=== PATIENT | female | born 1950 | race Caucasian/White ===

== ENCOUNTER 2016-10-08 23:24 | Emergency (ER) | payer OTHER ==
[2016-10-08] MEDS ORDERED: Ketorolac INJ* 30 MG/ML 1 ML VIAL IV ONE (23:53)
[2016-10-08] MEDS ORDERED: NS 0.9% 1000 ML* 1,000 ML IV ONE (23:53)
--- NOTE | 2016-10-09 00:32 | ED ---
Prateek Mc Rebecca, scribed for Todd Mason MD on 10/08/16 at 2354 . Abdominal Pain/Female - HPI Summary HPI Summary: Pt is a 66 y/o F who presents to ED c/o umbilical abdominal pain. Sx began at 0400 this morning and has been constant since onset. Pain is currently severe, ranked 8/10 and does not radiate. Treated with a half a Hydrocodone at 1730 and at 1945 she took a half a Xanax and the sx have not changed. Sx aggravated and alleviated by nothing. Additionally c/o nausea and low grade fever of 99.6. Denies V/D. PMHx cholelithiasis, diagnosed 1 year ago by MRI which she has not had complications with. - History of Current Complaint Chief Complaint: EDAbdPain Stated Complaint: ABD PAIN Time Seen by Provider: 10/08/16 23:48 Hx Obtained From: Patient Onset/Duration: Lasting Hours, Still Present Timing: Constant Severity Currently: Severe Pain Intensity: 8 Pain Scale Used: 0-10 Numeric Location: Umbilical Aggravating Factor(s): Nothing Alleviating Factor(s): Nothing Associated Signs and Symptoms: Positive: Fever - low grade, Nausea. Negative: Vomiting, Diarrhea Allergies/Adverse Reactions: Allergies Allergy/AdvReac Type Severity Reaction Status Date / Time Codeine Allergy Headache Verified 12/21/14 08:50 Iohexol Allergy Unknown Verified 10/09/16 03:21 Reaction Details Penicillins Allergy Rash Verified 12/21/14 08:50 PMH/Surg Hx/FS Hx/Imm Hx Endocrine/Hematology History: Denies: Hx Diabetes, Hx Thyroid Disease Cardiovascular History: Reports: Hx Hypertension Respiratory History: Reports: Hx Asthma Denies: Hx Chronic Obstructive Pulmonary Disease (COPD) GI History: Reports: Other GI Disorders - Hx cholelithiasis Denies: Hx Ulcer Musculoskeletal History: Reports: Hx Rheumatoid Arthritis - Surgical History Surgery Procedure, Year, and Place: Keloid surgery on ear x's 2 Infectious Disease History: No Infectious Disease History: Denies: Hx Clostridium Difficile, Hx Hepatitis, Hx Human Immunodeficiency Virus (HIV), Hx of Known/Suspected MRSA, Hx Shingles, Hx Tuberculosis, Hx Known/ Suspected VRE, Hx Known/Suspected VRSA, History Other Infectious Disease, Traveled Outside the [place] in Last 30 Days - Family History Known Family History: Positive: Cardiac Disease, Hypertension - Social History Alcohol Use: Occasionally Substance Use Type: Reports: None Hx Tobacco Use: Yes - QUIT IN 1999 Smoking Status (MU): Former Smoker Amount Used/How Often: 15 yrs Review of Systems Positive: Fever - Low-grade (99.6) Positive: Abdominal Pain, Nausea. Negative: Vomiting, Diarrhea All Other Systems Reviewed And Are Negative: Yes Physical Exam Triage Information Reviewed: Yes Vital Signs On Initial Exam: Initial Vitals Temp Pulse Resp BP Pulse Ox 96.9 F 90 22 149/84 97 10/08/16 23:30 10/08/16 23:30 10/08/16 23:30 10/08/16 23:30 10/08/16 23:30 Vital Signs Reviewed: Yes Appearance: Positive: Well-Appearing, Pain Distress - mild Skin: Positive: Warm Head/Face: Positive: Normal Head/Face Inspection Eyes: Positive: CORTEZ ENT: Positive: Hearing grossly normal Neck: Positive: Supple Respiratory/Lung Sounds: Positive: Clear to Auscultation, Breath Sounds Present Cardiovascular: Positive: RRR Abdomen Description: Positive: Soft, Other: - mild rt upper abd tenderness. Negative: Distended, Guarding Bowel Sounds: Positive: Present Musculoskeletal: Positive: Strength/ROM Intact Neurological: Positive: Alert, Oriented to Person Place, Time Psychiatric: Positive: Affect/Mood Appropriate Diagnostics - Vital Signs Vital Signs Temp Pulse Resp BP Pulse Ox 10/08/16 23:30 96.9 F 90 22 149/84 97 - Laboratory Result Diagrams: 10/09/16 00:39 10/09/16 00:39 Lab Statement: Any lab studies that have been ordered have been reviewed, and results considered in the medical decision making process. - CT CT Abd/Pel CT Interpretation: Positive (See Comments) - Probbale acute cholecystitis, can be confirmed with ultrasound as clinically indicated. ED physician reviewed this radiology report and agrees. CT Interpretation Completed By: Radiologist - Ultrasound No standard instances Ultrasound Interpretation Completed By: Radiologist - Abdomen US: Mild right renal atrophy. Non-mobile stone in the gallbladder neck, possibly impacted, without secondary findings for cholecystitis. ED physician reviewed radiology report and agrees. Re-Evaluation - Re-Evaluation First Eval Change: Improved - results d/w pt Abdominal Pain Fem Course/Dx - Course Course Of Treatment: Pt is a 66 y/o F who presents to ED c/o umbilical abdominal pain. Sx began at 0400 this morning and has been constant since onset. Pain is currently severe, ranked 8/10 and does not radiate. Treated with a half a Hydrocodone at 1730 and at 1945 she took a half a Xanax and the sx have not changed. Sx aggravated and alleviated by nothing. Additionally c/o nausea and low grade fever of 99.6. Denies V/D. In the ED course, pt was given Toradol and fluids. PMHx cholelithiasis, diagnosed 1 year ago by MRI which she has not had complications with. Abdomen US reveals mild right renal atrophy. Non-mobile stone in the gallbladder neck, possibly impacted, without secondary findings for cholecystitis. CT Abd/Pel reveals Probable acute cholecystitis, can be confirmed with ultrasound as clinically indicated. Pt will be D/C to home with Dx of biliary colic and a follow up with her PCP. She understands and agrees. Elevated BP noted and advised to f/u with PCP. - Diagnoses Provider Diagnoses: Biliary colic Discharge - Discharge Plan Condition: Stable Disposition: HOME Patient Education Materials: Biliary Colic (ED) Referrals: [facility] [place] [facility]FERRAL [Outside] - 3 Days The documentation as recorded by the Prateek acosta Rebecca accurately reflects the service I personally performed and the decisions made by , Todd Mason MD.
[2016-10-09 01:05] LABS: Hematocrit 36 % (35-47); Hemoglobin 12.3 g/dl (12.0-16.0); Mean Corpuscular HGB Conc 34 g/dl (31-36); Mean Corpuscular Hemoglobin 30 pg (27-31); Mean Corpuscular Volume 88 fL (80-97); Mean Platelet Volume 8 um3 (7.4-10.4); Red Blood Count 4.09 10^6/ul (4.0-5.4); Red Cell Distribution Width 13 % (10.5-15); White Blood Count 8.9 10^3/ul (3.5-10.8)
[2016-10-09 01:17] LABS: Albumin 4.3 g/dL (3.2-5.2); BUN/Creatinine Ratio 13.7 (8-20); C Reactive Protein 13.29 mg/L (< 5.00); Calcium 9.8 mg/dL (8.6-10.3); EGFR African American 46.4 (>60); EGFR Non-African American 36.1 (>60); Globulin 3.6 g/dL (2-4); Potassium 3.9 mmol/L (3.5-5.0); Total Bilirubin 0.6 mg/dL (0.2-1.0); Total Protein 7.9 g/dL (6.4-8.9)
[2016-10-09] MEDS ORDERED: Iodixanol* (CONTRAST) 320 MG/ML 100 ML SDV IV ONE (02:05)
[2016-10-09] MEDS ORDERED: oxyCODONE/Acetamin 5/325 MG* TAB PO ONE (04:10)
[2016-10-09 04:26] VITALS: BP 106/56
--- NOTE | 2016-10-09 08:52 | RAD ---
Indication: RIGHT upper quadrant pain. Comparison: October 09, 2016 CT. Technique: RIGHT upper quadrant ultrasound. Report: Appropriate direction flow documented in the portal and hepatic veins. 14.6 cm liver is normal in echogenicity. Negative for focal hepatic lesions. Negative for intrahepatic biliary dilatation. 4.3 mm common bile duct. Adequately distended gallbladder with normal 2.7 mm wall is remarkable for multiple stones with nonmobile 2 cm stone at the gallbladder neck. Negative for pericholecystic fluid. Negative for sonographic Bess's sign. The pancreas is significantly obscured due to bowel gas as well as limited acoustic window secondary to large body habitus. The visualized pancreatic body and tail are unremarkable. Negative for ascites. 8.6 x 4.6 x 4.9 cm RIGHT kidney is remarkable for mild cortical thinning. Negative for hydronephrosis. IMPRESSION: Cholelithiasis with nonmobile 2 cm stone at the gallbladder neck. Negative for gallbladder wall thickening, pericholecystic fluid, biliary dilatation, or sonographic Bess's sign to favor acute cholecystitis.
--- NOTE | 2016-10-09 10:14 | RAD ---
INDICATION: Abdominal pain mid abdomen and RIGHT upper quadrant since 0400 hours. Nonmobile 2 cm stone at gallbladder neck on ultrasound of the same date. COMPARISON: RIGHT upper quadrant ultrasound of the same date. TECHNIQUE: Multidetector CT images were obtained from the lung bases to the ischial tuberosities. Oral contrast administered. Assessment of the visceral limited without IV contrast. REPORT: Unremarkable visualized inferior thorax. Unremarkable liver. Multiple calcified stones in the normally distended gallbladder including a 2 cm stone at the neck corresponding with the ultrasound finding. Negative for biliary dilatation or visualized stone along the course of the nondilated common bile duct. Negative for pericholecystic fluid. Unremarkable pancreas and spleen. Negative for CT abnormality of the upper GI, small bowel, diminutive appendix visualized ascending lateral to the cecum, or colon. Negative for ascites, free air, hernias. Normal adrenal glands. Arterial calcification at the hilum of the RIGHT kidney. Negative for nephrolithiasis or hydronephrosis. No suspicious focal renal lesions. Unremarkable ureters and partially distended urinary bladder as well as the anteverted uterus and adnexal regions. Negative for lymphadenopathy. Minimal calcific plaque of normal diameter abdominal aorta. Physiologic partial distention of the IVC. Negative for suspicious osseous lesions. IMPRESSION: Cholelithiasis without compelling secondary CT findings to favor acute cholecystitis. Normal appendix documented. Negative for obstructive uropathy.
== END 2016-10-09 04:20 | disposition home or self-care (01) ==
LOC: ED 23:24
DX: K80.50 Calculus of bile duct without cholangitis or cholecystitis without obstruction (principal); R50.9 Fever, unspecified; R11.0 Nausea; Z87.891 Personal history of nicotine dependence
CPT/HCPCS: 36415; 74176; 76705; 80053; 83605; 83690; 83735; 85025; 86140; 87040; 96374; 99283; A9270-GY; J1885

== ENCOUNTER 2018-07-20 16:03 | Emergency (ER) | payer MEDICARE ==
--- NOTE | 2018-07-20 16:15 | UC ---
Throat Pain/Nasal Brett HPI - HPI Summary HPI Summary: cough, laryngitis, no fever for 3 weeks- - History of Current Complaint Chief Complaint: UCRespiratory Stated Complaint: SORE THROAT Time Seen by Provider: 07/20/18 16:08 Hx Obtained From: Patient ?: No Onset/Duration: Sudden Onset, Lasting Weeks - 3, Still Present Cough: Nonproductive Associated Signs & Symptoms: Positive: Nasal Discharge - Allergies/Home Medications Allergies/Adverse Reactions: Allergies Allergy/AdvReac Type Severity Reaction Status Date / Time codeine Allergy Headache Verified 07/20/18 16:24 iohexol Allergy Unknown Verified 07/20/18 16:24 Reaction Details Penicillins Allergy Rash Verified 07/20/18 16:24 Home Medications: Home Medications Aspirin [Aspirin Childrens 81 MG] 81 mg PO DAILY 07/20/18 [History Confirmed ] Hydroxychloroquine TAB* [Plaquenil TAB*] 200 mg PO BID 07/20/18 [History Confirmed 07/20/18] PMH/Surg Hx/FS Hx/Imm Hx 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 Cardiovascular History: Cardiac Disease GI/ History: Gastroesophageal Reflux - Surgical History Surgical History: Yes Surgery Procedure, Year, and Place: Keloid surgery on ear x's 2 - Family History Known Family History: Positive: Cardiac Disease, Hypertension - Social History Occupation: Retired Lives: With Family Alcohol Use: Occasionally Substance Use Type: None Smoking Status (MU): Former Smoker Amount Used/How Often: 15 yrs - Immunization History Most Recent Influenza Vaccination: 2013 Most Recent Tetanus Shot: up to date Most Recent Pneumonia Vaccination: has had Review of Systems All Other Systems Reviewed And Are Negative: Yes Constitutional: Positive: Chills, Fatigue Skin: Positive: Negative Eyes: Positive: Negative ENT: Positive: Sore Throat Respiratory: Positive: Cough Cardiovascular: Positive: Negative Gastrointestinal: Positive: Negative Genitourinary: Positive: Negative Motor: Positive: Negative Neurovascular: Positive: Negative Musculoskeletal: Positive: Negative Neurological: Positive: Negative Psychological: Positive: Negative Is Patient Immunocompromised?: Yes Physical Exam Triage Information Reviewed: Yes Appearance: Well-Appearing, No Pain Distress, Well-Nourished Vital Signs Reviewed: Yes Eye Exam: Normal Eyes: Positive: Conjunctiva Clear ENT Exam: Normal ENT: Positive: Normal ENT inspection, Hearing grossly normal, TMs normal. Negative: Nasal congestion, Nasal drainage, Trismus, Muffled voice, Hoarse voice Dental Exam: Normal Neck exam: Normal Neck: Positive: Supple, Nontender, No Lymphadenopathy Respiratory Exam: Normal Respiratory: Positive: Chest non-tender, Lungs clear, Normal breath sounds, No respiratory distress, No accessory muscle use Cardiovascular Exam: Normal Cardiovascular: Positive: RRR, No Murmur, Pulses Normal, Brisk Capillary Refill Musculoskeletal Exam: Normal Musculoskeletal: Positive: Strength Intact, ROM Intact, No Edema Neurological Exam: Normal Neurological: Positive: Alert, Muscle Tone Normal Psychological Exam: Normal Skin Exam: Normal Diagnostics - Laboratory Lab Results: rst - Throat Pain/Nasal Course/Dx - Course Course Of Treatment: tessalon, increase prednisone, albuterol, increase fluids follow with pcp prn - Differential Dx/Diagnosis Provider Diagnosis: Laryngitis, Environmental allergies Discharge - Sign-Out/Discharge Documenting (check all that apply): Patient Departure All imaging exams completed and their final reports reviewed: No Studies - Discharge Plan Condition: Stable Disposition: HOME Prescriptions: Albuterol HFA INHALER* [Ventolin HFA Inhaler*] 2 puff INH Q4H PRN #1 mdi PRN Reason: Cough Benzonatate CAP* [Tessalon 100 MG CAP*] 100 mg PO TID #40 cap Cetirizine HCl [Zyrtec] 10 mg PO DAILY #15 tab predniSONE [Prednisone 20 MG TAB] 40 mg PO DAILY 4 Days #8 tablet Patient Education Materials: Laryngitis (ED), Chronic Cough (ED) Referrals: [facility] [employer] [Primary Care Provider] - 1 Week - Billing Disposition and Condition Condition: STABLE Disposition: Home
[2018-07-20 16:22] VITALS: BP 123/63
== END 2018-07-20 17:04 | disposition home or self-care (01) ==
LOC: UCEAST 16:03
DX: J04.0 Acute laryngitis (principal); J30.2 Other seasonal allergic rhinitis; I51.9 Heart disease, unspecified; Z79.82 Long term (current) use of aspirin; Z88.5 Allergy status to narcotic agent; Z88.0 Allergy status to penicillin; Z91.041 Radiographic dye allergy status; Z87.891 Personal history of nicotine dependence
CPT/HCPCS: 87651; 99212; G0463